=== PATIENT | female | born 1995 | race Hispanic/Latino ===

== ENCOUNTER 2021-06-19 11:28 | Emergency (ER) | payer SELFPAY ==
[2021-06-19] MEDS ORDERED: Boostrix 0.5 ML (Tdap) VIAL ONE (12:58)
== END 2021-06-19 13:38 | disposition home or self-care (01) ==
LOC: ERS 11:28
DX: S61.012A Laceration without foreign body of left thumb without damage to nail, initial encounter (principal); Z23 Encounter for immunization; W26.0XXA Contact with knife, initial encounter; Y92.009 Unspecified place in unspecified non-institutional (private) residence as the place of occurrence of the external cause
CPT/HCPCS: 12001; 90471; 90715